=== PATIENT | female | born 1965 | race Caucasian/White ===

== ENCOUNTER 2018-07-01 17:50 | Emergency (ER) | payer BC ==
[~2018-07-01] VITALS: Ht 162.6 cm; Wt 82.6 kg
[2018-07-01 17:55] VITALS: BP 137/75; Ht 162.6 cm; Wt 82.6 kg
[2018-07-01 18:43] LABS: BASOPHIL % 0.1 % (0-2); PLATELET COUNT 251 x10^3mcL (130-400)
[2018-07-01 18:56] LABS: CARBON DIOXIDE 24.7 mmol/L (21-32); CHLORIDE SERUM 104 mmol/L (98-107); CREATININE SERUM 0.6 mg/dL (0.6-1.0); GFR1 > 60 mL/min; GLUCOSE SERUM 94 mg/dL (74-106); POTASSIUM SERUM 3.6 mmol/L (3.5-5.1); SODIUM SERUM 142 mmol/L (136-145)
[2018-07-01 19:00] LABS: ALBUMIN 4.1 g/dL (3.4-5.0); ALKALINE PHOSPHATASE 71 U/L (46-116); ALT/SGPT 22 U/L (14-59); AST/SGOT 17 U/L (15-37); BILIRUBIN TOTAL 0.4 mg/dL (0.20-1.00); LIPASE 129 IU/L (73-393); TOTAL PROTEIN, SERUM 7.8 g/dL (6.4-8.2)
[2018-07-01] MEDS ORDERED: SYNTHROID0.1 MG PO (20:00)
[2018-07-01 20:26] LABS: MAGNESIUM 2.3 mg/dL (1.8-2.4); PHOSPHOROUS 3.4 mg/dL (2.5-4.9)
[2018-07-01 20:28] LABS: CHOLESTEROL/HDL RATIO 4.8
[2018-07-01 20:33] LABS: T3 TOTAL 0.92 ng/mL
[2018-07-01 20:36] LABS: FREE T4 1.2 ng/dL (0.76-1.46); FREE THYROXINE INDEX 3.2 ug/dL (1.4-4.5); T4(THYROXINE) 10.1 ug/dL (4.7-13.3)
== END 2018-07-01 22:11 | disposition home or self-care (01) ==
LOC: ED 17:50 → DU 19:52
PROVIDERS: Emergency Medicine; Internal Medicine
PROC: 3E033GC Introduction of Other Therapeutic Substance into Peripheral Vein, Percutaneous Approach (ICD-10-PCS; principal; 2018-07-01)
PROC: 3E023NZ Introduction of Analgesics, Hypnotics, Sedatives into Muscle, Percutaneous Approach (ICD-10-PCS; 2018-07-01)
PROC: BW21ZZZ Computerized Tomography (CT Scan) of Abdomen and Pelvis (ICD-10-PCS; 2018-07-01)
DX: R07.89 Other chest pain (principal); R10.12 Left upper quadrant pain; E07.9 Disorder of thyroid, unspecified; K52.9 Noninfective gastroenteritis and colitis, unspecified
CPT/HCPCS: 83880; 84439; J1885; J3475; J7030; Q0092